=== PATIENT | female | born 1995 | race Hispanic/Latino ===

== ENCOUNTER 2021-01-26 08:20 | Outpatient (CLI) | payer OTHER ==
[2021-01-26 17:21] LABS: SARS-CoV-2 PCR by NAA Not Detected (NotDetected)
== END 2021-01-26 08:21 | disposition home or self-care (01) ==
LOC: CSHLAB 08:20
PROVIDERS: ATTEND Family Medicine
DX: Z01.812 Encounter for preprocedural laboratory examination (principal); Z20.822 Contact with and (suspected) exposure to COVID-19
CPT/HCPCS: U0003; U0005

== ENCOUNTER 2021-02-05 02:36 | Inpatient (IN) | payer MEDICAID, OTHER, SELFPAY ==
[2021-02-05 02:59] VITALS: BMI 34.9
[2021-02-05] MEDS ORDERED: HYDROcodone/Acetaminophen 5/325 mg Tablet PO PRN ×3 (03:30→15:15)
[2021-02-05] MEDS ORDERED: Lidocaine 1% (PF) 30 ML VIAL SC PRN (03:30)
[2021-02-05] MEDS ORDERED: NS w/ Oxytocin 30 units 500 ML IV SCH ×2 (03:30)
[2021-02-05] MEDS ORDERED: Methylergonovine 0.2 MG/ML VIAL IM PRN (03:30)
[2021-02-05] MEDS ORDERED: Ibuprofen 800 MG TAB PO PRN (03:30)
[2021-02-05] MEDS ORDERED: NS w/ Oxytocin 30 units 500 ML IVPB SCH (03:30)
[2021-02-05] MEDS ORDERED: Carboprost 250 MCG/ML AMP IM PRN (03:30)
[2021-02-05] MEDS ORDERED: Acetaminophen 500 MG TAB PO PRN (03:30)
[2021-02-05] MEDS ORDERED: hydrALAZINE 20 MG/ML VIAL SLOW IVP PRN ×2 (03:30→15:15)
[2021-02-05] MEDS ORDERED: Misoprostol 200 MCG TAB RC PRN (03:30)
[2021-02-05] MEDS ORDERED: Promethazine HCl 25 MG/ML VIAL IM PRN ×3 (03:30→15:15)
[2021-02-05] MEDS ORDERED: Ondansetron PF 4 MG/2 ML Vial IVP PRN ×3 (03:30→15:15)
[2021-02-05] MEDS ORDERED: Butorphanol Tartrate 1 MG/ML VIAL SLOW IVP PRN (03:30)
[2021-02-05] MEDS ORDERED: Diphenoxylate HCl/Atropine Tablet PO PRN (03:30)
[2021-02-05] MEDS: Lactated Ringer's 1,000 ML IV SCH ×2 (04:08→08:30)
[2021-02-05 04:23] LABS: Hemoglobin 13.8 g/dL (12.0-15.5); Mean Corpuscular Hemoglobin 31.9 pg (27.0-33.0); Mean Corpuscular Volume 93.8 fl (81.6-98.3); Mean Platelet Volume 12.5 fl (7.4-10.4); Platelet Count 214 10x3/uL (150-450); Red Blood Cell (RBC) Count 4.33 10x6/uL (3.90-5.03); White Blood Cell (WBC) Count 10.8 10x3/uL (3.5-10.5)
[2021-02-05 04:52] LABS: Syphilis Antibody Nonreactive (Nonreactive); Syphilis Antibody Index 0.05 S/CO (<1.00 Non-Reactive)
[2021-02-05 04:53] LABS: Hep B Surf Ag Non-Reactive S/CO (NonReactive)
[2021-02-05 05:41] LABS: HBSAg Index 0.17 S/CO (0-0.99)
[2021-02-05] MEDS ORDERED: Bupivacaine 0.25% HCL 30 ML VIAL ONE (07:00)
[2021-02-05 07:05] LABS: SARS-CoV-2 NAA Rapid Test Not Detected (NotDetected)
[2021-02-05] MEDS ORDERED: Fentanyl 2 mcg/Bup 0.1% Cadd 100 ML ONE (08:26)
[2021-02-05] MEDS ORDERED: Hydrocerin (Eucerin) Cream 120 gm Jar TOP PRN (09:54)
[2021-02-05] MEDS ORDERED: Acetaminophen 325 MG TAB PO PRN (09:54)
[2021-02-05] MEDS ORDERED: Lactated Ringer's 500 ML IV PRN (09:54)
[2021-02-05] MEDS ORDERED: Naloxone HCl 0.4 mg/ml Vial IVP PRN ×2 (09:54)
[2021-02-05] MEDS ORDERED: diphenhydrAMINE 50 MG/ML VIAL IVP PRN (09:54)
[2021-02-05] MEDS ORDERED: ePHEDrine Sulfate 50 MG/10 ML VIAL SLOW IVP PRN (09:54)
[2021-02-05] MEDS ORDERED: Communication Order-Pharmacy FS SCH (10:00)
[2021-02-05] MEDS ORDERED: Fentanyl 2 mcg/Bupivacaine 0.1% Cassette 100 ML EPIDURAL SCH (10:00)
[2021-02-05] MEDS ORDERED: Benzocaine-Menthol 82.5 ML CAN TOP PRN (15:15)
[2021-02-05] MEDS ORDERED: Bisacodyl 10 MG SUPP PR PRN (15:15)
[2021-02-05] MEDS ORDERED: diphenhydrAMINE 25 MG CAP PO PRN (15:15)
[2021-02-05] MEDS ORDERED: Boostrix 0.5 ML (Tdap) VIAL IM ONE (15:15)
[2021-02-05] MEDS ORDERED: Milk Of Magnesia 30 ML UDCUP PO PRN (15:15)
[2021-02-05] MEDS ORDERED: Lanolin Ointment 7 GM TUBE TOP PRN (15:15)
[2021-02-05] MEDS ORDERED: Ibuprofen 800 MG TAB PO SCH (15:45)
[2021-02-05 18:40] LABS: HIV (1/2) Antibody/Antigen Non-Reactive (NonReactive); HIV 1/2 INDEX 0.06 S/CO (<1.00)
[2021-02-05] MEDS: Ferrous Sulfate 325 MG TAB PO SCH (19:26)
[2021-02-05] MEDS: Ibuprofen 800 MG TAB PO SCH (20:32)
[2021-02-05] MEDS: Docusate Calcium (SURFAK) 240 MG CAP PO SCH (20:32)
[2021-02-06] MEDS: Ibuprofen 800 MG TAB PO SCH ×2 (06:17→17:35)
[2021-02-06] MEDS: Ferrous Sulfate 325 MG TAB PO SCH ×2 (08:12→18:29)
[2021-02-06] MEDS: Prenatal Vitamin 1 TAB PO SCH (09:29)
[2021-02-06] MEDS: Docusate Calcium (SURFAK) 240 MG CAP PO SCH ×2 (09:29→21:28)
[2021-02-07] MEDS: Ibuprofen 800 MG TAB PO SCH ×4 (00:35→22:10)
[2021-02-07] MEDS: Prenatal Vitamin 1 TAB PO SCH (08:20)
[2021-02-07] MEDS: Docusate Calcium (SURFAK) 240 MG CAP PO SCH ×2 (08:20→22:10)
[2021-02-07] MEDS: Ferrous Sulfate 325 MG TAB PO SCH ×2 (08:21→16:37)
[2021-02-08] MEDS: Ibuprofen 800 MG TAB PO SCH (06:56)
[2021-02-08] MEDS: Ferrous Sulfate 325 MG TAB PO SCH (08:00)
[2021-02-08 08:47] VITALS: BP 105/67; TEMP 98.5
[2021-02-08] MEDS: Prenatal Vitamin 1 TAB PO SCH (09:01)
[2021-02-08] MEDS: Docusate Calcium (SURFAK) 240 MG CAP PO SCH (09:01)
== END 2021-02-08 11:50 | disposition home or self-care (01) | DRG 807 ==
LOC: CSHLD/OP 02:36 → CSHLD 05:52 → CSHPP 17:10
PROVIDERS: ADMIT Family Medicine; ATTEND Family Medicine
PROC: 10E0XZZ Delivery of Products of Conception, External Approach (ICD-10-PCS; principal; 2021-02-05)
PROC: 0KQM0ZZ Repair Perineum Muscle, Open Approach (ICD-10-PCS; 2021-02-05)
DX: O69.81X0 Labor and delivery complicated by cord around neck, without compression, not applicable or unspecified (principal); Z37.0 Single live birth; O48.0 Post-term pregnancy; Z20.822 Contact with and (suspected) exposure to COVID-19; Z3A.38 38 weeks gestation of pregnancy; Z3A.41 41 weeks gestation of pregnancy; O70.1 Second degree perineal laceration during delivery
CPT/HCPCS: 36415; 51702; 85027; 86780; 86850; 86900; 86901; 87340; 87389; 99285; J2310; J2590; J7120; S0020; U0002